=== PATIENT | male | born 1970 | race Caucasian/White ===

== ENCOUNTER 2020-08-08 21:57 | Emergency (ER) | payer SELFPAY ==
[~2020-08-08] VITALS: Ht 170.2 cm; Wt 68.2 kg
[2020-08-08 22:03] VITALS: Ht 170.2 cm; Wt 68.2 kg
[2020-08-08] MEDS ORDERED: IBUPROFEN800 MG PO (22:04)
[2020-08-08 22:18] LABS: BASOPHILS 0.6 % (0-2); HEMATOCRIT 39.3 % (42.0-54.0); HEMOGLOBIN 13.5 g/dL (13.5-17.5); IMMATURE GRANULOCYTES 0.1 % (0-5); LYMPHOCYTES 23.2 % (15-50); MCH 29.9 pg (26.0-34.0); MCHC 34.4 g/dL (31.0-37.0); MCV 87.1 fL (80.0-100.0); MEAN PLATELET VOLUME 8.8 fL (7.4-10.4); MONOCYTES 10.2 % (2-11); NEUTROPHILS 63.9 % (40-80); PLATELET COUNT 399 10x3/uL (130-400); RBC 4.51 10x6/uL (4.20-6.10); RDW 12.4 % (11.5-14.5)
[2020-08-08 22:29] LABS: CALC OSMOLALITY 279 mosm/kg (275-300); CALCIUM 9.3 mg/dL (8.5-10.1); CHLORIDE - SERUM 103 mmol/L (98-107); CREATININE - SERUM 1.1 mg/dL (0.6-1.3); GLUCOSE 144 mg/dL (74-106); POTASSIUM - SERUM 3.7 mmol/L (3.5-5.1); SODIUM 138 mmol/L (136-145); UREA NITROGEN 15 mg/dL (7-18); eGFR NON AFRICAN AMERICAN 75 mL/min (90-120)
[2020-08-08 22:44] LABS: ALBUMIN 2.9 g/dL (3.4-5.0); ALKALINE PHOSPHATASE 104 U/L (30-120); ALT (SGPT) 23 U/L (10-68); BILIRUBIN - TOTAL 0.18 mg/dL (0.2-1.3); CREATINE KINASE 84 UL (21-232); LIPASE 128 U/L (73-393); MAGNESIUM - SERUM 1.9 mg/dL (1.8-2.4); PRO BNP 187 pg/mL (0-125); PROTEIN - SERUM 8.1 g/dL (6.4-8.2); THYROID STIMULATING HORMONE 1.35 uIU/mL (0.36-3.74); TROPONIN-I < 0.017 ng/mL (0.000-0.060)
[2020-08-09 00:46] VITALS: BP 122/74
== END 2020-08-09 02:35 | disposition short-term general hospital (02) ==
LOC: D.ER 21:57
PROVIDERS: Family Medicine
DX: G93.9 Disorder of brain, unspecified (principal)